=== PATIENT | female | born 1935 | race Caucasian/White ===

== ENCOUNTER → 2018-04-08 | Outpatient (CLI) | payer OTHER ==
[~2018-04-08] MED LIST: CENTRUM SILVER1 CTB PO; CLARITIN10 MG PO; KEFLEX500 MG PO; LOVASTATIN40 MG PO; NAPROSYN500 MG PO; OSCAL/D,OYSTER250 MG PO; PAROXETIN10 MG PO; PRESERVISION1 SGL PO; VITAMIN D2000 IU PO; ZESTRIL,PRINIVI10 MG PO; ZITHROMAX Z PA250 MG PO
== END | disposition home or self-care (01) ==
LOC: MAMMO 15:20
DX: Z12.31 Encounter for screening mammogram for malignant neoplasm of breast (principal)

== ENCOUNTER → 2019-08-06 | Outpatient (CLI) | payer MEDICARE | END | disposition home or self-care (01) | LOC: US 09:30 | DX: K76.0 Fatty (change of) liver, not elsewhere classified (principal); R74.8 Abnormal levels of other serum enzymes ==

== ENCOUNTER → 2020-07-21 | Outpatient (CLI) | payer MEDICARE | END | disposition home or self-care (01) | LOC: COVID19 14:49 | PROVIDERS: ATTEND Physician Assistant | DX: Z20.828 Contact with and (suspected) exposure to other viral communicable diseases (principal); R69 Illness, unspecified ==

== ENCOUNTER → 2020-08-29 | Outpatient (CLI) | payer MEDICARE | END | disposition home or self-care (01) | LOC: MAMMO 14:09 | PROVIDERS: ATTEND Physician Assistant | DX: Z12.31 Encounter for screening mammogram for malignant neoplasm of breast (principal) ==

== ENCOUNTER → 2020-10-07 | Outpatient (CLI) | payer MEDICARE | END | disposition home or self-care (01) | LOC: COVID19 15:02 | PROVIDERS: ATTEND Physician Assistant | DX: Z20.822 Contact with and (suspected) exposure to COVID-19 (principal) ==

== ENCOUNTER → 2021-06-26 | Outpatient (CLI) | payer MEDICARE | END | disposition home or self-care (01) | LOC: COVID19 15:32 | PROVIDERS: ATTEND Internal Medicine | DX: Z11.52 Encounter for screening for COVID-19 (principal) ==

== ENCOUNTER → 2022-02-21 | Outpatient (CLI) | payer MEDICARE | END | disposition home or self-care (01) | LOC: CARD 09:07 | PROVIDERS: ATTEND Physician Assistant | DX: I08.0 Rheumatic disorders of both mitral and aortic valves (principal) ==

== ENCOUNTER → 2022-03-28 | Outpatient (CLI) | payer MEDICARE | END | disposition home or self-care (01) | LOC: RAD 15:18 | PROVIDERS: ATTEND Internal Medicine | DX: M47.814 Spondylosis without myelopathy or radiculopathy, thoracic region (principal); M53.82 Other specified dorsopathies, cervical region; I70.0 Atherosclerosis of aorta; M25.511 Pain in right shoulder ==

== ENCOUNTER → 2023-04-09 | Outpatient (CLI) | payer MEDICARE | END | disposition home or self-care (01) | LOC: RAD 16:04 | PROVIDERS: ATTEND Internal Medicine | DX: M16.0 Bilateral primary osteoarthritis of hip (principal); M25.461 Effusion, right knee ==

== ENCOUNTER → 2023-10-02 | Outpatient (CLI) | payer MEDICARE | END | disposition home or self-care (01) | LOC: RAD 11:20 | PROVIDERS: ATTEND Physician Assistant | DX: M48.061 Spinal stenosis, lumbar region without neurogenic claudication (principal); M16.0 Bilateral primary osteoarthritis of hip; M51.36 Other intervertebral disc degeneration, lumbar region; W19.XXXA Unspecified fall, initial encounter ==

== ENCOUNTER 2023-12-10 13:49 | Emergency (ER) | payer MEDICARE ==
[~2023-12-10] VITALS: Ht 162.5 cm; Wt 74.4 kg
[2023-12-10 14:14] VITALS: BP 172/80
[2023-12-10 15:02] LABS: BASO % 0.3 % (0.0-1.0); EOS # 0.1 10*3/uL (0.0-0.4); HEMATOCRIT 40.8 % (37.0-47.0); LYMPH # 1.6 10*3/uL (1.3-4.4); LYMPH % 23.7 % (27.0-41.0); MEAN CELL VOLUME 91.9 fl (81.0-99.0); MEAN CORPUSCULAR HGB 29.1 pg (27.0-31.0); MEAN CORPUSCULAR HGB CONC 31.6 g/dl (33.0-37.0); MEAN PLATELET VOLUME 9.8 fl (9.6-12.3); MONO # 0.6 10*3/uL (0.1-1.0); MONO % 8.8 % (3.0-9.0); NEUT # 4.4 10*3/uL (2.3-7.9); NEUT % 65.9 % (47.0-73.0); PLATELET COUNT AUTOMATED 203 10*3/uL (130-400); RED BLOOD COUNT 4.44 10*6/uL (4.10-5.10); RED CELL DISTRI WIDTH 13.5 % (0-14.5); WHITE BLOOD COUNT 6.7 10*3/uL (4.8-10.8)
[2023-12-10 15:15] LABS: ACT PARTIAL THROMBO TIME 25.5 SECONDS (20.0-32.1)
[2023-12-10 15:22] LABS: BUN 19 mg/dl (9-23); CHLORIDE 103 mmol/L (98-107); POTASSIUM 4.1 mmol/L (3.4-5.1)
== END 2023-12-10 17:04 | disposition home or self-care (01) ==
LOC: ED 13:49
PROVIDERS: Nurse Practitioner
DX: S62.512A Displaced fracture of proximal phalanx of left thumb, initial encounter for closed fracture (principal); F41.9 Anxiety disorder, unspecified; F32.A Depression, unspecified; J44.9 Chronic obstructive pulmonary disease, unspecified; Z98.51 Tubal ligation status; W23.0XXA Caught, crushed, jammed, or pinched between moving objects, initial encounter; Y93.89 Activity, other specified; Y92.89 Other specified places as the place of occurrence of the external cause; Y99.8 Other external cause status

== ENCOUNTER → 2024-01-31 | Outpatient (CLI) | payer MEDICARE | END | disposition home or self-care (01) | LOC: ORTHO 01:31 | PROVIDERS: ATTEND Orthopaedic Surgery | DX: M25.511 Pain in right shoulder (principal) ==

== ENCOUNTER 2024-03-28 11:50 | Emergency (ER) | payer MEDICARE ==
[~2024-03-28] VITALS: Ht 160 cm; Wt 72.6 kg
[2024-03-28 12:00] VITALS: BP 155/72
[2024-03-28] MEDS ORDERED: CETIRIZINE HYDR10 MG PO (12:02)
[2024-03-28] MEDS ORDERED: ROSUVASTATIN CA20 MG PO (12:02)
[2024-03-28] MEDS ORDERED: VITAMIN D3125 MCG PO (12:02)
[2024-03-28] MEDS ORDERED: NITROFURANTOIN100 M9 PO (12:03)
[2024-03-28] MEDS ORDERED: SERTRALINE HYDR50 MG PO (12:03)
[2024-03-28] MEDS ORDERED: PRESERVISION A1 EAC3 PO (12:04)
[2024-03-28] MEDS ORDERED: CEPHALEXIN500 M1 PO (12:16)
[2024-03-28] MEDS ORDERED: VIBRAMYCIN100 MG PO (12:16)
[2024-03-28] MEDS ORDERED: Tdap Vaccine 0.5 ML SYR (Adult Vaccine) IM ONE (12:20)
== END 2024-03-28 12:42 | disposition home or self-care (01) ==
LOC: ED 11:50
DX: L03.115 Cellulitis of right lower limb (principal); E11.9 Type 2 diabetes mellitus without complications; Z79.899 Other long term (current) drug therapy; Z79.2 Long term (current) use of antibiotics; Z98.51 Tubal ligation status

== ENCOUNTER 2025-05-05 16:01 | Inpatient (IN) | payer MEDICARE ==
[~2025-05-05] VITALS: Ht 162.6 cm; Wt 77.3 kg
[2025-05-05] VITALS (12 sets, daily range): BP systolic 106–174; BP diastolic 51–104
[~2025-05-05 16:01] MED LIST changes: +CEPHALEXIN500 M1 PO; +CETIRIZINE HYDR10 MG PO; +NITROFURANTOIN100 M9 PO; +PRESERVISION A1 EAC3 PO; +ROSUVASTATIN CA20 MG PO; +SERTRALINE HYDR50 MG PO; +VIBRAMYCIN100 MG PO; +VITAMIN D3125 MCG PO
[2025-05-05] MEDS ORDERED: JANUVIA50 MG PO (16:49)
[2025-05-05] MEDS ORDERED: PIOGLITAZONE HC15 MG PO (16:50)
[2025-05-05] MEDS ORDERED: Albuterol Sulf/Ipratropium 3 ML VIAL NEB ONE (16:50)
[2025-05-05] MEDS ORDERED: LISINOPRIL5 MG PO (16:50)
[2025-05-05] MEDS ORDERED: TOLTERODINE TART1 M1 PO (16:52)
[2025-05-05 16:59] LABS: BASO # 0.0 10*3/uL (0.0-0.1); BASO % 0.3 % (0.0-1.0); EOS # 0.1 10*3/uL (0.0-0.4); EOS % 1.7 % (1.0-4.0); MEAN CELL VOLUME 94.6 fl (81.0-99.0); MEAN CORPUSCULAR HGB 29.4 pg (27.0-31.0); MEAN PLATELET VOLUME 9.7 fl (9.6-12.3); MONO # 0.7 10*3/uL (0.1-1.0); MONO % 9.6 % (3.0-9.0); NEUT # 4.7 10*3/uL (2.3-7.9); NEUT % 62.6 % (47.0-73.0); NUCLEATED RED BLOOD CELL 0.0 % (0.0-0.0); NUCLEATED RED BLOOD CELL 0.0 10*3/uL (0.0-0.0); PLATELET COUNT AUTOMATED 210 10*3/uL (130-400); RED CELL DISTRI WIDTH 13.4 % (0-14.5)
[2025-05-05 17:26] LABS: BUN 27 mg/dl (9-23); SGPT/ALT 15 U/L (5-49)
[2025-05-05] MEDS ORDERED: ADENOSINE 6 MG/2 ML VIAL IV ONE ×2 (18:20)
[2025-05-05] MEDS ORDERED: DILTIAZEM HCL IN NACL,ISO-OSM 100 ML IV SCH (18:30)
[2025-05-05] MEDS ORDERED: Acetaminophen/Hydrocodone 5 MG/325 MG TABLET PO PRN (19:50)
[2025-05-05] MEDS ORDERED: BISACODYL 10 MG SUPP R PRN (19:50)
[2025-05-05] MEDS ORDERED: BISACODYL 5 MG TAB PO PRN (19:50)
[2025-05-05] MEDS ORDERED: ACETAMINOPHEN 650 MG SUPP R PRN (19:50)
[2025-05-05] MEDS ORDERED: ACETAMINOPHEN 325 MG TAB PO PRN (19:55)
[2025-05-05] MEDS ORDERED: DEXTROSE 50% 25 GM/50 ML VIAL IV PRN (19:55)
[2025-05-05] MEDS ORDERED: INSULIN LISPRO 1 UNIT/0.01 ML SQ SCH (22:00)
[2025-05-06] VITALS (10 sets, daily range): BP systolic 120–148; BP diastolic 60–83
[2025-05-06 05:47] LABS: BILIRUBIN Negative (Negative); BLOOD Negative (Negative); CLARITY Clear (Clear); COLOR Yellow (Yellow); KETONE 1+ (Negative); LEUKO ESTERASE Negative (Negative); NITRITE Negative (Negative); PH 5.5 (4.5-8.0); SPECIFIC GRAVITY 1.020 (1.001-1.030); UROBILINOGEN 1.0 E.U./dl (0.0-1.0)
[2025-05-06 06:07] LABS: BASO # 0.0 10*3/uL (0.0-0.1); BASO % 0.4 % (0.0-1.0); EOS # 0.1 10*3/uL (0.0-0.4); EOS % 2.2 % (1.0-4.0); MEAN CELL VOLUME 94.4 fl (81.0-99.0); MEAN CORPUSCULAR HGB 30.2 pg (27.0-31.0); MEAN PLATELET VOLUME 10.1 fl (9.6-12.3); MONO # 0.6 10*3/uL (0.1-1.0); MONO % 11.2 % (3.0-9.0); NEUT # 3.4 10*3/uL (2.3-7.9); NEUT % 63.4 % (47.0-73.0); NUCLEATED RED BLOOD CELL 0.0 10*3/uL (0.0-0.0); NUCLEATED RED BLOOD CELL 0.7 % (0.0-0.0); PLATELET COUNT AUTOMATED 186 10*3/uL (130-400); RED CELL DISTRI WIDTH 13.4 % (0-14.5)
[2025-05-06 06:19] LABS: ACT PARTIAL THROMBO TIME 29.1 SECONDS (20.0-32.1)
[2025-05-06 06:27] LABS: BACTERIA 1+; MUCOUS 2+
[2025-05-06 06:38] LABS: BUN 21 mg/dl (9-23); FREE T4 1.14 ng/dl (0.89-1.76); SGPT/ALT 11 U/L (5-49)
[2025-05-06 06:49] LABS: VITAMIN D, 25-HYDROXY 88.0 ng/mL (30-100)
[2025-05-06] MEDS ORDERED: Cholecalciferol 5,000 IU CAP (125 MCG) PO SCH (10:00)
[2025-05-06] MEDS ORDERED: LISINOPRIL 5 MG TAB PO SCH (10:00)
[2025-05-06] MEDS ORDERED: METOPROLOL SUCCINATE XR 25 MG TAB PO SCH (10:00)
[2025-05-06] MEDS ORDERED: METOPROLOL SUCCINATE XR 50 MG TAB PO SCH (10:00)
[2025-05-06] MEDS ORDERED: APIXABAN 2.5 MG TABLET PO SCH (10:00)
[2025-05-06] MEDS ORDERED: ATORVASTATIN CALCIUM 40 MG TABLET PO SCH (10:00)
[2025-05-07] VITALS: BP 133/71
[2025-05-07 06:24] LABS: BASO # 0.0 10*3/uL (0.0-0.1); BASO % 0.5 % (0.0-1.0); EOS # 0.1 10*3/uL (0.0-0.4); EOS % 2.2 % (1.0-4.0); MEAN CELL VOLUME 93.5 fl (81.0-99.0); MEAN CORPUSCULAR HGB 29.4 pg (27.0-31.0); MEAN PLATELET VOLUME 10.2 fl (9.6-12.3); MONO # 0.6 10*3/uL (0.1-1.0); MONO % 9.8 % (3.0-9.0); NEUT # 3.6 10*3/uL (2.3-7.9); NEUT % 59.5 % (47.0-73.0); NUCLEATED RED BLOOD CELL 0.0 % (0.0-0.0); NUCLEATED RED BLOOD CELL 0.0 10*3/uL (0.0-0.0); PLATELET COUNT AUTOMATED 199 10*3/uL (130-400); RED CELL DISTRI WIDTH 13.5 % (0-14.5)
[2025-05-07 07:23] LABS: BUN 19 mg/dl (9-23)
[2025-05-07 08:00] VITALS: BP 136/79
[2025-05-07 12:00] VITALS: BP 100/65
[2025-05-07 16:00] VITALS: BP 100/58
[2025-05-07 16:30] VITALS: BP 100/58
[2025-05-07 20:00] VITALS: BP 119/83
[2025-05-08] VITALS: BP 122/67
[2025-05-08] MEDS ORDERED: ALGINATE DRESSING/CME-CELL 1 EACH BANDAGE T ONE (07:46)
[2025-05-08 08:00] VITALS: BP 121/77
[2025-05-08] MEDS ORDERED: METOPROLOL SUCC50 M1 PO (10:40)
[2025-05-08] MEDS ORDERED: OMNICEF300 MG PO (10:40)
[2025-05-08] MEDS ORDERED: ELIQUIS2.5 M1 PO (10:40)
[2025-05-08 12:00] VITALS: BP 137/92
== END 2025-05-08 13:00 | disposition home health service (06) | DRG 309 ==
LOC: ED 16:01 → EDHOLD 18:57 → 5E 18:57
PROVIDERS: Emergency Medicine; ADMIT Internal Medicine; ATTEND Internal Medicine
DX: I48.91 Unspecified atrial fibrillation (principal); N30.00 Acute cystitis without hematuria; S22.42XA Multiple fractures of ribs, left side, initial encounter for closed fracture; I48.92 Unspecified atrial flutter; J45.909 Unspecified asthma, uncomplicated; K74.60 Unspecified cirrhosis of liver; E11.65 Type 2 diabetes mellitus with hyperglycemia; S51.811A Laceration without foreign body of right forearm, initial encounter; B96.20 Unspecified Escherichia coli [E. coli] as the cause of diseases classified elsewhere; B96.4 Proteus (mirabilis) (morganii) as the cause of diseases classified elsewhere; E78.5 Hyperlipidemia, unspecified; I10 Essential (primary) hypertension; D64.9 Anemia, unspecified; Z79.899 Other long term (current) drug therapy; Z79.01 Long term (current) use of anticoagulants; Z79.2 Long term (current) use of antibiotics; Z80.8 Family history of malignant neoplasm of other organs or systems; Z87.891 Personal history of nicotine dependence; W18.39XA Other fall on same level, initial encounter; Y93.89 Activity, other specified; Y92.89 Other specified places as the place of occurrence of the external cause; Y99.8 Other external cause status